=== PATIENT | female | born 1970 | race Hispanic/Latino ===

== ENCOUNTER 2017-06-17 08:39 | Emergency (ER) | payer BC ==
[~2017-06-17] VITALS: Ht 167.6 cm; Wt 105.2 kg
[~2017-06-17 08:39] MED LIST: BACTRIM DS TAB1 EACH PO; CLINDAMYCIN HC150 MG PO; TYLENOL WITH C1 EACH PO
[2017-06-17] MEDS ORDERED: KETOROLAC TROMETHAMINE 60 MG/2 ML VIAL IM ONE (09:00)
--- NOTE | 2017-06-17 11:32 | Diagnostic Imaging Report ---
PROCEDURE:X-RAY RIGHT SHOULDER, COMPLETE COMPARISON:None. INDICATIONS:FALL FINDINGS: There are no fractures, dislocations, lytic or blastic lesions. The bones are well-mineralized. Mild DJD of the right a.c. joint. CONCLUSION: No acute osseous abnormality. Ryan Mcrae M.D. Dictated by: Ryan Mcrae M.D. on 06/17/2017 at 11:41 Electronically approved by: Ryan Mcrae M.D. on 06/17/2017 at 11:41
--- NOTE | 2017-06-17 11:33 | Diagnostic Imaging Report ---
PROCEDURE: X-RAY LUMBAR SPINE, TWO VIEWS COMPARISON: None. INDICATIONS: FALL FINDINGS: There are 5 [id number] lumbar-type vertebral bodies. The lumbar spine is in anatomic alignment. There is mild anterior wedge deformity of T11 and to lesser degree T12. The paraspinal soft tissues are normal. CONCLUSION: Mild anterior wedge deformity of T11 may represent mild compression injury of uncertain age. Ryan Mcrae M.D. Dictated by: Ryan Mcrea M.D. on 06/17/2017 at 11:42 Electronically approved by: Ryan Mcrae M.D. on 06/17/2017 at 11:42
[2017-06-17] MEDS ORDERED: MORPHINE SULFATE 2 MG/ML SYR IV STA (11:47)
[2017-06-17] MEDS ORDERED: ROBAXIN-750750 MG PO (11:58)
[2017-06-17] MEDS ORDERED: MOTRIN200 MG PO (11:58)
[2017-06-17] MEDS ORDERED: TYLENOL # 31 EA PO (11:58)
[2017-06-17] MEDS ORDERED: MORPHINE SULFATE 4 MG/ML SYR ONE (13:06)
[2017-06-17 13:10] VITALS: BP 107/62
== END 2017-06-17 13:23 | disposition home or self-care (01) ==
LOC: ER 08:39
DX: S46.811A Strain of other muscles, fascia and tendons at shoulder and upper arm level, right arm, initial encounter (principal); M25.511 Pain in right shoulder; M54.6 Pain in thoracic spine; M25.552 Pain in left hip; W18.2XXA Fall in (into) shower or empty bathtub, initial encounter; Y93.E1 Activity, personal bathing and showering; Y92.002 Bathroom of unspecified non-institutional (private) residence as the place of occurrence of the external cause
CPT/HCPCS: 72100; 73030; 81025; 96372; 99283; J1885; J2270